=== PATIENT | male | born 1955 | race Caucasian/White ===

== ENCOUNTER 2023-10-23 10:41 | Emergency (ER) | payer OTHER ==
[2023-10-23] MEDS ORDERED: Dexamethasone 10 MG/ML VIAL ONE (12:04)
[2023-10-23] MEDS ORDERED: Ipratropium/Albuterol 3 ML NEB ONE (12:06)
== END 2023-10-23 12:23 | disposition home or self-care (01) ==
LOC: MADERS 10:41
DX: J06.9 Acute upper respiratory infection, unspecified (principal); Z87.891 Personal history of nicotine dependence
CPT/HCPCS: 71045; 87804; 87807; J1100; J7620